=== PATIENT | male | born 1970 | race Native Hawaiian/Other Pacific Islander ===

== ENCOUNTER 2021-06-19 14:10 | Emergency (ER) | payer OTHER, SELFPAY ==
[2021-06-19 14:32] VITALS: BP 157/86; PULSE 83; RESP 17; TEMP 36.3; O2SAT 99; BMI 43.5
[2021-06-19 15:08] LABS: COVID19 -Nasal RAPID POSITIVE (Negative)
--- NOTE | 2021-06-19 16:26 | ED_ITS ---
HPI - URI/Sore Throat <Shea Ortiz PA-C - Last Filed: 06/19/21 16:29> General Chief Complaint: Upper Respiratory Symptoms Stated Complaint: headache, poss. covid exposed Time Seen by Provider: 06/19/21 15:57 Source: patient Mode of arrival: Ambulatory History of Present Illness HPI Narrative: 50-year-old male presents to the ED with 1 day myalgias, headache. Patient started experiencing symptoms this morning which include all over body aches, headache. Patient denies fever, chills, chest pain, shortness of breath, cough, nasal congestion, nausea, vomiting, lightheadedness, syncope. Patient is vaccinated for COVID. Related Data Allergies Allergy/AdvReac Type Severity Reaction Status Date / Time No Known Drug Allergies Allergy Verified 06/19/21 14:36 Review of Systems <Shea Ortiz PA-C - Last Filed: 06/19/21 16:29> Review of Systems ROS Unobtainable: All systems reviewed & are unremarkable except as noted in HPI and below Constitutional Constitutional: Reports body ache(s), Denies chills, Denies fatigue, Denies fever(s), Denies frequent falls, Reports headache(s), Denies lethargy and Denies weakness Eyes Eyes: Denies change in vision, Denies eye discharge, Denies irritation and Denies loss of vision ENT Ears, Nose, Mouth, and Throat: Denies change in voice, Denies dizziness, Reports headache(s), Denies neck pain, Denies sore throat and Denies throat swelling Cardiovascular Cardiovascular: Denies chest pain, Denies irregular heart rhythm, Denies lightheadedness, Denies palpitations, Denies dyspnea, Denies dyspnea on exertion and Denies orthopnea Respiratory Respiratory: Denies cough, Denies dyspnea, Denies dyspnea on exertion and Denies wheezing Gastrointestinal Gastrointestinal: Denies abdominal pain, Denies change in bowel habits, Denies diarrhea, Denies nausea and Denies vomiting Genitourinary Genitourinary: Denies hematuria, Denies flank pain, Denies urinary incontinence and Denies urinary urgency Musculoskeletal Musculoskeletal: Denies back pain, Denies muscle weakness, Denies neck pain, Denies numbness and Denies tingling Integumentary/Breasts Skin/Breast: Denies pruritus, Denies erythema, Denies rash and Denies wounds Neurologic Neurologic: Denies behavioral changes, Denies confusion, Denies dizziness, Denies frequent falls, Reports headache(s), Denies loss of vision, Denies numbness, Denies tingling and Denies weakness Psychiatric Psychiatric: Denies anxiety, Denies behavioral changes, Denies confusion, Denies depression, Denies homicidal ideation and Denies suicidal ideation Endocrine Endocrine: Denies fatigue, Denies flushing and Denies palpitations Hematologic/Lymphatic Hematologic/Lymphatic: Denies easy bruising Allergic/Immunologic Allergic/Immunologic: Denies urticaria, Denies throat swelling and Denies wheezing Patient History <Shea Ortiz PA-C - Last Filed: 06/19/21 16:29> Social History Smoking Status: Never smoker Smoking Status: Never smoker alcohol intake frequency: 0-2 drinks per day Substance Use Type: does not use Exam <Shea Ortiz PA-C - Last Filed: 06/19/21 16:29> Initial Vital Signs Initial Vital Signs: Vital Signs Temperature 97.4 F L 06/19/21 14:32 Pulse Rate 83 06/19/21 14:32 Respiratory Rate 17 06/19/21 14:32 Blood Pressure 157/86 H 06/19/21 14:32 Pulse Oximetry 99 06/19/21 14:32 Const General: cooperative, healthy appearing and comfortable [facility] Head: normal to inspection Ears: hearing grossly normal bilaterally Mouth: oral mucosae normal Throat: posterior oropharynx normal Eyes General: appearance normal, both eyes and all related structures Neck Neck: normal visual inspection Resp Effort & Inspection: normal respiratory effort Auscultation: clear to auscultation bilaterally Cardio Rate: regular rate Rhythm: regular rhythm Skin General: no rashes or lesions noted Neuro General: patient alert, patient awake and patient oriented x3 <Diana Lazo DO - Last Filed: 06/20/21 09:19> Initial Vital Signs Initial Vital Signs: Vital Signs Temperature 97.4 F L 06/19/21 14:32 Pulse Rate 83 06/19/21 14:32 Respiratory Rate 17 06/19/21 14:32 Blood Pressure 157/86 H 06/19/21 14:32 Pulse Oximetry 99 06/19/21 14:32 Course <Shea Ortiz PA-C - Last Filed: 06/19/21 16:29> Orders Ordered: ED Orders 06/19/21 14:40 COVID19 -Nasal swab/Pre-Proc Stat Vital Signs Vital signs: Vital Signs - 8 hr 06/19/21 14:32 Temperature 97.4 F L Pulse Rate 83 Respiratory Rate 17 Blood Pressure 157/86 H Pulse Oximetry 99 <Diana Lazo DO - Last Filed: 06/20/21 09:19> Orders Ordered: ED Orders 06/19/21 14:40 COVID19 -Nasal swab/Pre-Proc Stat Vital Signs Vital signs: Vital Signs - 8 hr 06/19/21 14:32 Temperature 97.4 F L Pulse Rate 83 Respiratory Rate 17 Blood Pressure 157/86 H Pulse Oximetry 99 MDM - URI/Sore Throat <Shea Ortiz PA-C - Last Filed: 06/19/21 16:29> Medical Records Attestation: I reviewed the patient's medical records. Lab Data Attestation: I reviewed the patient's lab results. Lab results narrative: COVID-19 positive Labs: Lab Results 06/19/21 Range/Units 14:40 SARS-CoV-2 (PCR) Positive H (Negative) MDM Narrative Medical decision making narrative: 50-year-old male presents to the ED with 1 day myalgias, headache. Patient's symptoms indicate need for COVID-19 test. Patient's COVID-19 test is positive. Given patient is stable and saturating well on room air, will discharge home with quadrant in, isolation instructions, ED return precautions. <DO Alonzo Luong Last Filed: 06/20/21 09:19> Lab Data Labs: Lab Results 06/19/21 Range/Units 14:40 SARS-CoV-2 (PCR) Positive H (Negative) Discharge Plan Departure Patient Disposition: Home Clinical Impression: COVID-19 Instructions: DI for COVID-19 (Suspected or Confirmed ) Activity Restrictions/Additional Instructions: You were diagnosed with COVID-19 infection in the ED today. Please follow the CDC guidelines of isolating for 5 days from the onset of her symptoms, followed by masking in public for the next 5 days once your symptom free. Return to the ED if you have any trouble breathing or experience chest pain. <Diana Lazo DO - Last Filed: 06/20/21 09:19> Cosign ED Attending Cosignature Attestation: I was immediately available in the department for consultation. Documentation has been reviewed.
== END 2021-06-19 16:28 | disposition home or self-care (01) ==
PROVIDERS: Emergency Medicine; Emergency Provider Student in an Organized Health Care Education/Training Program
DX: U07.1 COVID-19 (principal)
CPT/HCPCS: 87635; 99281; C9803